=== PATIENT | male | born 1950 | race Caucasian/White ===

== ENCOUNTER 2021-09-23 15:03 | Emergency (ER) | payer MEDICARE, SELFPAY ==
[2021-09-23 15:23] VITALS: BP 159/102; PULSE 92; RESP 18; TEMP 37.1; O2SAT 99
--- NOTE | 2021-09-23 16:32 | ED.GENADULT ---
HPI - General Adult General Chief complaint: Urogenital-Male Stated complaint: UTI Source: patient Mode of arrival: ambulatory Limitations: no limitations History of Present Illness HPI narrative: Patient is a 71-year-old male who presents to the [facility] via POV for evaluation of right low back pain that has been present for approximately 3 weeks. Additionally, he reports dysuria and urinary hesitancy although believes this is from his radiation treatment that he received in November 2019 from a diagnosis of prostate cancer in September 2019. Nothing worsens symptoms. Bending over improves back pain. Related Data Home Medications Medication Instructions Recorded Confirmed amlodipine 5 mg PO DAILY 09/23/21 09/23/21 Allergies Allergy/AdvReac Type Severity Reaction Status Date / Time No Known Allergies Allergy Verified 09/23/21 15:38 Review of Systems Review of Systems: Denies injury. History of UTIs. Today symptoms are similar to previous UTIs. Pertinent negatives fever, chills, sweats, change in appetite, poor p.o. intake, malaise, headache, stiffness, spasms, abdominal pain, nausea, vomiting, diarrhea, constipation, dysuria, urinary frequency/urgency, hematuria, urinary retention, flank pain, bladder/bowel incontinence, skin color changes, deformity, numbness, tingling, loss of sensation, decreased ROM, difficulty with ambulation/coordination, chest pain, heart palpitations/murmurs, and sob. [facility] Past Medical History Medical History (Updated 09/23/21 @ 16:35 by Les Rainey, [employer], ) Hypertension Prostate cancer Comments I have reviewed and agree with the patient's past medical, surgical, social, and family hx as documented by the RN. There is no relevant family history pertinent to the presenting complaint. Exam Narrative: GENERAL: Well-appearing, well-nourished, and in no acute distress. HEAD: Normocephalic, atraumatic. NECK: Supple. No lymphadenopathy or nuchal rigidity. No evidence of pain, decreased ROM, or deformity. CHEST: Lung sounds are clear to auscultation in bilateral lung shah. No respiratory distress. HEART: Regular rate and rhythm. No murmur heard. Normal peripheral pulses. ABDOMEN: Soft, nontender, nondistended, normal active bowel sounds in all quadrants. No guarding. No rebound tenderness. No pulsatile or palpable abdominal mass(es). No CVAT EXTREMITIES: Normal range of motion. No edema. BACK: Full ROM. No evidence of deformity, spasm, mass, spinal tenderness, or swelling. Bilateral SLR tests negative. Normal gait. Mild right-sided low back pain elicited upon palpation. SKIN: Warm, dry, no rash. No skin color changes. Excellent turgor. NEURO: No focal deficits. Alert and oriented x3. Course Vital Signs Vital signs: Vital Signs Temperature 98.7 F 09/23/21 15:23 Pulse Rate 92 09/23/21 15:23 Respiratory Rate 18 09/23/21 15:23 Blood Pressure 159/102 H 09/23/21 15:23 Pulse Oximetry 99 09/23/21 15:23 Temperature 98.7 F 09/23/21 15:23 Pulse Rate 92 09/23/21 15:23 Respiratory Rate 18 09/23/21 15:23 Blood Pressure 159/102 H 09/23/21 15:23 Pulse Oximetry 99 09/23/21 15:23 Medical Decision Making Differential Diagnosis Differential Diagnosis: Nephrolithiasis, urinary tract infection, pyelonephritis, frequency of micturition, dysuria Medical Records Medical records reviewed: Yes I reviewed the external patient's medical records. Vital Signs Vital Signs: Vital Signs Temperature 98.7 F 09/23/21 15:23 Pulse Rate 92 09/23/21 15:23 Respiratory Rate 18 09/23/21 15:23 Blood Pressure 159/102 H 09/23/21 15:23 Pulse Oximetry 99 09/23/21 15:23 Temperature 98.7 F 09/23/21 15:23 Pulse Rate 92 09/23/21 15:23 Respiratory Rate 18 09/23/21 15:23 Blood Pressure 159/102 H 09/23/21 15:23 Pulse Oximetry 99 09/23/21 15:23 Due to an elevated blood pressure, I had a detailed discussion with the patient and/or guardian ye
== END 2021-09-23 16:34 | disposition home or self-care (01) ==
PROVIDERS: Emergency Provider Nurse Practitioner Family
DX: M54.50 Low back pain, unspecified (principal); I10 Essential (primary) hypertension; Z85.46 Personal history of malignant neoplasm of prostate
CPT/HCPCS: 81003; 99212; G0463

== ENCOUNTER 2023-02-02 18:38 | Emergency (ER) | payer MEDICARE, SELFPAY ==
--- NOTE | 2023-02-02 18:58 | PC.NURSE ---
patient states that he is going to [facility] because wait times here are too long and he has things to do
== END 2023-02-02 18:58 | disposition left against medical advice (07) ==
DX: Z53.21 Procedure and treatment not carried out due to patient leaving prior to being seen by health care provider (principal)
CPT/HCPCS: 99199

== ENCOUNTER 2023-12-30 14:54 | Emergency (ER) | payer MEDICARE, SELFPAY ==
[2023-12-30 14:56] VITALS: BP 181/84; PULSE 90; RESP 16; TEMP 36.5; O2SAT 98
[2023-12-30 17:16] LABS: Bacteria Urine None Seen /hpf; Non Pathogenic Casts 0-2; RBC Urine 21-50 /hpf (0-2); Squamous Epithelial Cell Urine None Seen /hpf (Few); WBC Urine 0-5 /hpf (0-3)
[2023-12-30 17:27] LABS: Appearance Urine Clear (Clear); Color Urine Yellow (Yellow); Protein Urine Negative (Negative); pH Urine 6.5 (5.0-9.0)
[2023-12-30 17:28] LABS: Bilirubin Urine Negative (Negative); Blood Urine 1+ (Negative); Glucose Urine UA Negative (Negative); Ketones Urine Negative (Negative); Leukocyte Esterase Ur Negative LEU/UL (Negative); Nitrate Urine Negative (Negative); Urobilinogen Urine 0.2 mg/dL (<2.0)
[2023-12-30 17:29] LABS: Add Urine Microscopic? YES
--- NOTE | 2023-12-30 17:36 | ED.MALEGU ---
HPI - Male Genitourinary General Chief complaint: Urogenital-Male Stated complaint: URINARY RETENTION, HX BPH Time Seen by Provider: 12/30/23 15:18 Source: patient Mode of arrival: ambulatory Limitations: no limitations History of Present Illness HPI Narrative: 73-year-old with a history of hypertension, BPH here with complaints of unable to you need since this morning. Patient stated while at work he tried several times to urinate but was unable to get urine out. Patient also mentions that he was seen in the ER a week ago for similar problem 1st started on Flomax and he did follow-up with Dr. Maravilla recommended continue Flomax for now. Patient stated that he had prostate cancer had a gamma knife several years ago. He denies any fever or chills no history of nausea vomiting Related Data Home Medications Medication Instructions Recorded Confirmed amlodipine 5 mg tablet 5 mg PO DAILY 09/23/21 09/23/21 Allergies Allergy/AdvReac Type Severity Reaction Status Date / Time No Known Allergies Allergy Verified 09/23/21 15:38 Review of Systems Review of Systems: All systems reviewed & are unremarkable except as noted in HPI and below Constitutional: Constitutional: Reports no additional constitutional complaints Eyes: Eyes: Reports no additional eye complaints ENT: Reports system reviewed and no additional complaints, except as documented Cardiovascular: Cardiovascular: Reports no additional cardiovascular complaints Respiratory: Respiratory: Reports no additional respiratory complaints Gastrointestinal: Gastrointestinal: Reports no additional gastrointestinal complaints Genitourinary: Genitourinary: Reports as per HPI Neurologic: Reports system reviewed and no additional complaints, except as documented PMFSH Past Medical History Medical History (Updated 12/30/23 @ 17:38 by Freddie Dudley MD) Hypertension Prostate cancer Exam Narrative: GENERAL: Well-appearing, well-nourished, and in no acute distress. HEAD: Normocephalic, atraumatic. EYES: PERRLA and EOMI. ENT: Nares clear, no rhinorrhea or epistaxis. Mucous membranes moist. NECK: Supple. CHEST: Clear to auscultation. No respiratory distress. HEART: Regular rate and rhythm. No murmur heard. Normal peripheral pulses. ABDOMEN: Soft, nontender, nondistended, normal active bowel sounds. EXTREMITIES: Normal range of motion. No edema. SKIN: Warm, dry, no rash. NEURO: No focal deficits. Alert and oriented x3. PSYCH: Normal mood and affect. Course Course Emergency Course: Davis catheter was placed urine was drained he is feeling much better I did inform him about his urinalysis. Recommended to continue Flomax, follow-up with urology. If feels comfortable going home the Vital Signs Vital signs: Vital Signs Temperature 36.5 C 12/30/23 14:56 Pulse Rate 90 12/30/23 14:56 Respiratory Rate 16 12/30/23 14:56 Blood Pressure 181/84 H 12/30/23 14:56 Pulse Oximetry 98 12/30/23 14:56 Oxygen Delivery Room Air 12/30/23 14:56 Temperature 36.5 C 12/30/23 14:56 Pulse Rate 90 12/30/23 14:56 Respiratory Rate 16 12/30/23 14:56 Blood Pressure 181/84 H 12/30/23 14:56 Pulse Oximetry 98 12/30/23 14:56 Oxygen Delivery Room Air 12/30/23 14:56 MDM - Male Genitourinary Lab Data Labs: Lab Results 12/30/23 Range/Units 16:46 Urine Color Yellow (Yellow) Urine Appearance Clear (Clear) Urine pH 6.5 (5.0-9.0) Ur Specific [place] 1.010 (1.001-1.035) Urine Protein Negative (Negative) mg/dL Urine Glucose (UA) Negative (Negative) mg/dL Urine Ketones Negative (Negative) mg/dL Ur Blood (Man) 1+ H (Negative) Urine Nitrate Negative (Negative) Urine Bilirubin Negative (Negative) Urine Urobilinogen 0.2 (<2.0) mg/dL Leukocyte Esterase Rfl Negative (Negative) JACLYN/UL Urine RBC 21-50 H (0-2) /hpf Urine WBC 0-5 (0-3) /hpf Ur Squamous Epith Cells None seen (Few) /hpf
[2023-12-30 18:54] VITALS: BP 167/94; PULSE 70; RESP 20; TEMP 36.8; O2SAT 99
== END 2023-12-30 18:56 | disposition home or self-care (01) ==
PROVIDERS: Emergency Provider Family Medicine; PCP Nurse Practitioner Family
DX: N40.1 Benign prostatic hyperplasia with lower urinary tract symptoms (principal); R33.8 Other retention of urine; I10 Essential (primary) hypertension; Z85.46 Personal history of malignant neoplasm of prostate
CPT/HCPCS: 51702; 81001; 99283

== ENCOUNTER 2024-07-07 14:17 | Emergency (ER) | payer MEDICARE, SELFPAY ==
--- NOTE | 2024-07-07 14:51 | PC.NURSE ---
Pt reports he will just go to urgent care. A&Ox4
== END 2024-07-07 15:19 | disposition left against medical advice (07) ==
LOC: ANHED 14:53
PROVIDERS: PCP Nurse Practitioner Family
DX: S99.912A Unspecified injury of left ankle, initial encounter (principal)
CPT/HCPCS: 99199

== ENCOUNTER 2024-07-07 15:25 | Emergency (ER) | payer OTHER, MEDICARE, SELFPAY ==
--- NOTE | ~2024-07-07 | XR_ITS ---
XR foot LT min 3V Ordering provider: Juan Mckenzie APRN History: . foot pain . Comparison: None. FINDINGS: BONES: Fracture lateral malleolus. Old healed fracture of the second metatarsal bone is noted. JOINT SPACES: Normal. No tarsal coalition. SOFT TISSUES: Normal. IMPRESSION: Fracture lateral malleolus. Reviewed, dictated and finalized at location A. IMPRESSION: Fracture lateral malleolus.
--- NOTE | ~2024-07-07 | XR_ITS ---
XR ankle LT min 3V Ordering provider: Juan Mckenzie APRN History: . ankle pain slipped and fell . Comparison: None. FINDINGS: BONES: Fracture of the lateral malleolus is noted. JOINT SPACES: The ankle mortise is normal. SOFT TISSUES: Minimal soft tissue swelling over the lateral malleolus. IMPRESSION: Fracture in the lateral malleolus. Reviewed, dictated and finalized at location A.
--- NOTE | 2024-07-07 15:26 | ED.LOWEXIN ---
HPI - Extremity Injury (Lower) General Chief Complaint: Extremity Injury, Lower Stated Complaint: Injured Left Ankle Time Seen by Provider: 07/07/24 15:25 Source: patient Mode of arrival: ambulatory Limitations: no limitations History of Present Illness HPI Narrative: Rodger is a 73-year-old male patient presenting to the clinic today with complaints of left ankle injury/pain. He reports he slipped on a avocado while at work and rolled his ankle. Reports pain to the ankle joint as well as to the foot. Denies hitting his head or any loss of consciousness. Related Data Home Medications Medication Instructions Recorded Confirmed amlodipine 5 mg tablet 5 mg PO DAILY 09/23/21 09/23/21 Allergies Allergy/AdvReac Type Severity Reaction Status Date / Time No Known Allergies Allergy Verified 07/07/24 14:18 Review of Systems Review of Systems: Pertinent positives per HPI. Patient denies any fever, chills, rash, headache, visual changes, dizziness, cough, runny nose, sore throat, shortness of breath, chest pain, palpitations, nausea, vomiting, diarrhea, constipation, abdominal pain, or any urinary issues. [facility] Past Medical History Medical History Hypertension Prostate cancer Comments At the time of my signature, I reviewed and agree with the nursing past medical, surgical, social, and family history. There is no relevant family history pertinent to the patient complaint. Exam Narrative: General: Well-developed, well nourished, in no apparent distress Head: Normocephalic, atraumatic. Cardio: Regular rate and rhythm, s1 and s2 normal, no murmur appreciated. Resp: Clear to auscultation bilaterally, no rhonchi, rales, wheezing or rubs. Musculoskeletal: No deformity, tender to palpation of the anterior, lateral, and medial ankle joint, pain to the lateral foot, grossly normal range of motion, walking with a walking stick, muscle strength strong and equal, peripheral pulse strong, no edema, no cyanosis, normal gait and station Course Course Emergency Course: Portions of this record may have been created with voice recognition software. Level of Care: Express Care Visit Vital Signs Vital signs: Vital Signs Temperature 36.6 C 07/07/24 15:31 Pulse Rate 82 07/07/24 15:31 Respiratory Rate 20 07/07/24 15:31 Blood Pressure 119/68 07/07/24 15:31 Pulse Oximetry 97 07/07/24 15:31 Oxygen Delivery Room Air 07/07/24 15:31 Temperature 36.6 C 07/07/24 15:31 Pulse Rate 82 07/07/24 15:31 Respiratory Rate 20 07/07/24 15:31 Blood Pressure 119/68 07/07/24 15:31 Pulse Oximetry 97 07/07/24 15:31 Oxygen Delivery Room Air 07/07/24 15:31 Vital signs reviewed MDM - Extremity Injury (Lower) MDM Narrative Medical decision making narrative: At the time of visit patient is resting comfortably on the exam table. Patient appears to be nontoxic. Diagnostics: X-ray of the left foot and ankle was performed. X-ray shows close nondisplaced fracture of the fibula-lateral malleolus Plan: I suspect patient has a lateral malleolus fracture of the left ankle. Short leg posterior splint was applied. CSM within normal limits. Will have patient follow-up with Dr. Hess-orthopedic provider. Call his office tomorrow to schedule appointment. Patient declined crutches. Supportive measures were discussed with the patient and they voiced understanding discharge instructions and agrees to treatment plan. Return precautions reviewed Differential Diagnosis Differential diagnosis: Likely ankle sprain and strain and ankle fracture Imaging Data Radiologist's impression: ITS Impressions Ankle X-Ray 07/07/24 16:05 IMPRESSION: Fracture in the lateral malleolus. Foot X-Ray 07/07/24 16:06 IMPRESSION: Fracture lateral malleolus. Discharge Plan Discharge Clinical Impression: Closed left fibular fracture
[2024-07-07 15:31] VITALS: BP 119/68; PULSE 82; RESP 20; TEMP 36.6; O2SAT 97
== END 2024-07-07 16:25 | disposition home or self-care (01) ==
PROVIDERS: Emergency Provider Nurse Practitioner Family
DX: S82.62XA Displaced fracture of lateral malleolus of left fibula, initial encounter for closed fracture (principal); W22.8XXA Striking against or struck by other objects, initial encounter; Y99.0 Civilian activity done for income or pay; I10 Essential (primary) hypertension; Z85.46 Personal history of malignant neoplasm of prostate
CPT/HCPCS: 29515; 73610; 73630; 99214; G0463